=== PATIENT | female | born 1950 ===

== ENCOUNTER 2017-12-20 05:18 | Inpatient (IN) | payer OTHER ==
[~2017-12-20] VITALS: Ht 170.2 cm; Wt 50.8 kg
[2017-12-20] VITALS (8 sets, daily range): BP systolic 119–146; BP diastolic 57–73
[2017-12-20] MEDS ORDERED: ROPINIROLE HCL2 MG PO (06:48)
[2017-12-20] MEDS ORDERED: TRAZODONE HCL50 MG ORAL (06:48)
[2017-12-20] MEDS ORDERED: NATURE-THROID97.5 MG PO (06:48)
[2017-12-20] MEDS ORDERED: NORCO 10-325 T1 EACH ORAL (06:48)
[2017-12-20] MEDS ORDERED: fentaNYL 100 mcg/2 mL IV ONE ×2 (07:06→10:41)
[2017-12-20] MEDS ORDERED: Midazolam 2mg/2ml Inj ONE (07:06)
[2017-12-20] MEDS ORDERED: EPINEPHrine 1mg/1ml Amp ONE (07:07)
[2017-12-20] MEDS ORDERED: Propofol 200mg/20ml IV ONE (07:07)
[2017-12-20] MEDS ORDERED: Bacitracin 50000 Units Vial ONE (07:08)
[2017-12-20] MEDS ORDERED: Thrombin 5000 units TOPIC ONE ×2 (07:08→07:09)
[2017-12-20] MEDS ORDERED: Bupivacaine 0.5% Inj 30 ml vial INJ ONE (07:08)
[2017-12-20] MEDS ORDERED: Vancomycin 1gm inj IVPB ONE (07:08)
[2017-12-20] MEDS ORDERED: Succinylcholine 20mg/ml 10ml vial ONE (07:10)
[2017-12-20] MEDS ORDERED: Zemuron 50mg/5ml Inj IV ONE (07:10)
--- NOTE | 2017-12-20 07:19 | Pre-Procedure Note/Attestation ---
Pre-Procedure Note/Attestation Complete Prior to Procedure Procedure Narrative: Microdecompression at L45 and L5S1 with discectomy and possible laminectomy at L5S1 Indications for Procedure Pre-Operative Diagnosis: lumbar radiculopathy and HNP Attestation I attest that I discussed the nature of the procedure; its benefits; risks and complications; and alternatives (and the risks and benefits of such alternatives ), prior to the procedure, with the patient (or the patient's legal quality control representative). I attest that, if there was a reasonable possibility of needing a blood transfusion, the patient (or the patient's legal quality control representative) was given the [place] [facility] [employer] [facility] standardized written summary, pursuant to the Rayshawn Kayla Blood Safety Act ([place] Health and Safety Code # 1645, as amended). I attest that I re-evaluated the patient just prior to the surgery and that there has been no change in the patient's H&P, except as documented below: Nickolas Brennan MD Dec 20, 2017 07:19
[2017-12-20] MEDS ORDERED: LR 1000ml ONE (07:30)
[2017-12-20] MEDS ORDERED: Propofol 1,000mg/ 100ml btl IV ONE (07:30)
[2017-12-20] MEDS ORDERED: Neostigmine 1mg/ml 10ml Inj ONE (07:30)
[2017-12-20] MEDS ORDERED: NS Irrig 1000ml ONE (07:30)
[2017-12-20] MEDS ORDERED: Sterile Water Irrig 1000ml IRRIG ONE (07:30)
[2017-12-20] MEDS ORDERED: LR 1000ml 1,000 ML IVLG SCH (09:22)
--- NOTE | 2017-12-20 09:22 | Anethesia Preoperative Eval ---
Anesthesia Pre-op PMH/ROS General Date of Evaluation: Dec 20, 2017 Time of Evaluation: 07:20 Anesthesiologist: Cinthia ASA Score: ASA 3 Mallampati Score Class I : Soft palate, uvula, fauces, pillars visible Class II: Soft palate, uvula, fauces visible Class III: Soft palate, base of uvula visible Class IV: Only hard plate visible Mallampati Classification: Class II Surgeon: Mika Diagnosis: Lumbar radiculopathy Surgical Procedure: L4-L5 L5-S1 laminotomy with decompression Anesthesia History: none Social History: current smoker Family History: no anesthesia problems Allergies: Coded Allergies: No Known Allergies (Unverified , 12/20/17) Past Medical History Cardiovascular: Denies: HTN, CAD, [place], valve dz, arrhythmia, other Pulmonary: Denies: asthma, COPD, RAKEL, other Gastrointestinal/Genitourinary: Reports: GERD Neurologic/Psychiatric: Reports: depression/anxiety, other - chronic pain; Denies: dementia, CVA, TIA Endocrine: Reports: hypothyroidism; Denies: DM, steroids, other HEENT: Denies: cataract (L), cataract (R), glaucoma, KAKE (L), KAKE (R), other Hematology/Immune: Denies: anemia, DVT, bleeding disorder, other Musculoskeletal/Integumentary: Reports: DJD, other - Multiple sclerosis bilateral legs weakness; Denies: OA, RA, DDD, edema Other: other - malnourished PMH Narrative: as above PSxH Narrative: Bladder stimulator placement Anesthesia Pre-op Phys. Exam Physician Exam Last Vital Signs Date Time Temp Pulse Resp B/P (MAP) Pulse Ox O2 Delivery O2 Flow Rate FiO2 12/20/17 06:41 Room Air 12/20/17 06:24 97.5 58 18 119/57 (77) 100 97.5 Constitutional: NAD Neurologic: CN 2-12 intact Cardiovascular: RRR, no M/R/G Respiratory: CTA, other Gastrointestinal: S/NT/ND Airway Exam Mallampati Score: Class II MO: limited Neck: stiff ROM: limited Teeth: missing Dentures: upper, lower Anesthesia Pre-op A/P Labs see chart Studies Pre-op Studies: EKG - NSR Risk Assessment & Plan Assessment: ASA 3 Plan: GA with ETT prone position neuromonitoring Status Change Before Surgery: No Pre-Antibiotics Drug: Ancef 1 gr. Given Within 1 Hr of Incision: Yes Time Given: 08:50 Bud Vicente MD Dec 20, 2017 09:22
[2017-12-20] MEDS ORDERED: Ketorolac 30mg Inj IV PRN (09:30)
[2017-12-20] MEDS ORDERED: Midazolam 2mg/2ml Inj IVP PRN (09:30)
[2017-12-20] MEDS ORDERED: Acetaminophen (Non formulary) 100 ML IV ONE (09:30)
[2017-12-20] MEDS ORDERED: fentaNYL 100 mcg/2 mL IV PRN (09:30)
[2017-12-20] MEDS ORDERED: DiphenhydrAMINE 50mg/ml Inj IVP PRN (09:30)
[2017-12-20] MEDS ORDERED: Glycopyrrolate 0.2mg/ml 1ml Vial ONE (10:04)
--- NOTE | 2017-12-20 11:48 | Brief Operative Note ---
Immediate Post Operative Note Operative Note Pre-op Diagnosis: lumbar radiculopathy and HNP Procedure: L5S1 laminectomy and foraminotomies and microdiscectomy Post-op Diagnosis: same as pre-op Findings: consistent w/pre-op dx studies Surgeon: MAXINE Prison Psychiatrist: JUWAN Anesthesia: general Specimen: yes Complications: none Condition: stable Fluids: 1200CC Estimated Blood Loss: minimal - 100CC Drains: hemovac Implant(s) used?: No Nickolas Brennan MD Dec 20, 2017 11:48
--- NOTE | 2017-12-20 12:19 | Immediate Post-Op Evaluation ---
Immediate Post-Op Evalulation Immediate Post-Op Evalulation Procedure: L4-L5-S1 laminotomy with decompression Date of Evaluation: Dec 20, 2017 Time of Evaluation: 12:17 IV Fluids: 1500 Blood Products: Albumine 250 Estimated Blood Loss: 100 Urinary Output: 400 Blood Pressure Systolic: 141 Blood Pressure Diastolic: 70 Pulse Rate: 84 Respiratory Rate: 20 O2 Sat by Pulse Oximetry: 99 Temperature (Fahrenheit): 97.8 Pain Score (1-10): 1 Nausea: No Vomiting: No Complications none Patient Status: reacts, patent, extubated, none Hydration Status: adequate Bud Vicente MD Dec 20, 2017 12:19
--- NOTE | 2017-12-20 12:34 | Diagnostic Imaging Report ---
Indication: Back pain Technique: Flexion and extension images of the lumbar spine Comparison: No Findings: There is slight anterior offset of L5 on S1 and of L4 on L5.. The remaining bony alignment is normal and does not change significantly between flexion and extension. There is a burst/compression fracture deformity of the L1 vertebral body, with approximately 40% height loss anteriorly. There is degenerative narrowing of the T12-L1 disc and slightly of the L5-S1 disc. There is a sacral stimulator wire present Impression: No evidence of ligamentous instability L1 compression fracture, age indeterminate. Minimal alignment abnormality at L4-5 and L5-S1, probably due to facet arthrosis Other degenerative changes, as described Sacral stimulator wire noted
--- NOTE | 2017-12-20 12:35 | Diagnostic Imaging Report ---
Indication: Low back pain, right lower extremity greater than left lower extremity weakness, intraoperative Technique: Intraoperative imaging Comparison: none Findings: Surgical tool is seen posterior to what is presumably the top of L5. Impression: Intraoperative imaging, as described
[2017-12-20] MEDS ORDERED: Naloxone 0.4mg/ml Inj IVP PRN (14:00)
[2017-12-20] MEDS ORDERED: Norco 5mg/325mg tab ORAL PRN (14:00)
[2017-12-20] MEDS: D5 1/2NS 1,000 ML IV SCH ×2 (14:20→22:44)
[2017-12-20] MEDS: Morphine Sulfate 4mg/ml Inj IV PRN ×4 (14:27→22:11)
--- NOTE | 2017-12-20 14:37 | History and Physical ---
History of Present Illness General Date patient seen: Dec 20, 2017 Present Illness HPI 67 year old female with hx of depression and anxiety was diagnosed to have lumbar radiculopathy and HNP and underwent L5S1 laminectomy and foraminotomies and microdiscectomy. Post operatively pt is admitted to surgical floor for post- op care. Allergies: Coded Allergies: No Known Allergies (Unverified , 12/20/17) Medication History Scheduled Ropinirole Hcl* (Ropinirole Hcl*), 2 MG PO BID, (Reported) Thyroid,Pork (Nature-Throid), 97.5 MG PO DAILY, (Reported) Trazodone Hcl* (Desyrel*), 50 MG ORAL BEDTIME, (Reported) Scheduled PRN Hydrocodone Bit/Acetaminophen 10-325* ([place] 10-325*), 1 TAB ORAL Q4H PRN for For Pain, (Reported) Patient History Healthcare decision maker [address](friend) Resuscitation status Full Code Advanced Directive on File Past Medical/Surgical History Past Medical/Surgical History: (1) Lumbar radiculitis Review of Systems All Other Systems: negative except mentioned in HPI Physical Exam General Appearance: WD/WN Lines, tubes and drains: peripheral HEENT: normocephalic Neck: non-tender, normal alignment, limited range of motion Respiratory/Chest: chest wall non-tender, lungs clear Breasts: no masses Cardiovascular/Chest: normal peripheral pulses Abdomen: normal bowel sounds Genitourinary/Rectal: normal genital exam Extremities: normal range of motion Last 24 Hour Vital Signs Date Time Temp Pulse Resp B/P (MAP) Pulse Ox O2 Delivery O2 Flow Rate FiO2 12/20/17 14:27 98.0 12/20/17 13:03 98 65 24 146/68 100 Nasal Cannula 3 98.0 12/20/17 12:45 69 24 140/63 100 Nasal Cannula 3 12/20/17 12:30 70 24 125/71 100 Nasal Cannula 3 12/20/17 12:19 208.0 84 20 99 12/20/17 12:15 81 24 125/71 100 Simple Mask 8 12/20/17 12:10 60 24 130/70 100 Simple Mask 8 12/20/17 12:05 97.8 60 24 139/73 100 Simple Mask 8 97.8 12/20/17 06:41 Room Air 12/20/17 06:24 97.5 58 18 119/57 (77) 100 97.5 Intake and Output 12/19/17 12/20/17 19:00 07:00 # Voids 1 Height (Feet): 5 Height (Inches): 7.00 Weight (Pounds): 112 Medications Current Medications Medications (Trade) Dose Ordered Sig/Mylene Route PRN Reason Start Time Stop Time Status Last Admin Dose Admin Acetaminophen/ Hydrocodone Bitart ([place] 5/325) 1 tab Q3H PRN ORAL pain score 1-3 12/20/17 14:00 12/27/17 13:59 Acetaminophen/ Hydrocodone Bitart ([place] 7.5/325) 1 tab Q3H PRN ORAL pain score 4-6 12/20/17 14:00 12/27/17 13:59 Cefazolin Sodium 1 gm/Dextrose 55 ml @ 110 mls/hr Q8H IV 12/20/17 16:00 12/21/17 08:29 Dextrose/Sodium Chloride 1,000 ml @ 100 mls/hr Q10H IV 12/20/17 14:00 01/19/18 13:59 12/20/17 14:20 Docusate Sodium (Colace) 100 mg TWICE A DAY ORAL 12/20/17 18:00 01/19/18 17:59 Morphine Sulfate (Morphine Sulfate) 2 mg Q4H PRN IV Mild Pain (Pain Scale 1-3) 12/20/17 14:00 12/27/17 13:59 Morphine Sulfate (Morphine Sulfate) 4 mg Q3H PRN IV Severe Pain (Pain Scale 7-10) 12/20/17 14:00 12/27/17 13:59 12/20/17 14:27 Morphine Sulfate (Morphine Sulfate) 4 mg Q4H PRN IV Moderate Pain (Pain Scale 4-6) 12/20/17 14:00 12/27/17 13:59 Naloxone HCl (Narcan) 0.1 mg PRN PRN IVP RR<12/min, pt unarousable 12/20/17 14:00 01/19/18 13:59 Assessment/Plan Problem List: (1) Lumbar radiculopathy ICD Codes: M54.16 - Radiculopathy, lumbar region SNOMED: [id number] (2) L5S1 laminectomy Assessment/Plan post op care pain management symptomatic treatment dvt prophylaxis. Zarrabi,Mirali MD Dec 20, 2017 14:37
[2017-12-20] MEDS: ceFAZolin sod 1 GM in D5W 55 ML IV SCH ×2 (17:38→23:29)
[2017-12-20] MEDS: Docusate 100mg cap ORAL SCH (18:00)
[2017-12-20] MEDS: TraZODone 50mg tab ORAL SCH (22:06)
[2017-12-21] VITALS (7 sets, daily range): BP systolic 100–136; BP diastolic 60–78
[2017-12-21] MEDS: Morphine Sulfate 4mg/ml Inj IV PRN ×8 (00:50→20:05)
--- NOTE | 2017-12-21 05:15 | Operative Note - Dictated ---
DATE OF OPERATION: 12/20/2017 PREOPERATIVE DIAGNOSES: L4-L5 and L5-S1 disk protrusion stenosis and right lower extremity radiculopathy with progressive neurologic deficit and weakness. POSTOPERATIVE DIAGNOSES: L4-L5 and L5-S1 disk protrusion stenosis and right lower extremity radiculopathy with progressive neurologic deficit and weakness. PROCEDURE PERFORMED: 1. L5-S1 laminectomy, foraminotomy, and right-sided diskectomy. 2. Right L4-L5 laminotomy, medial facetectomy, foraminotomy, and lateral recess decompression. 3. Intraoperative use of microscope. SURGEON: Nickolas Brennan M.D. NANOTECHNICIAN: Rafi Vazquez M.D. ANESTHESIA: General endotracheal anesthesia. ANESTHESIOLOGIST: Bud Vicente M.D. INTRAOPERATIVE FINDINGS: 1. Severe central canal lateral recess and foraminal stenosis at L5-S1 with a disk protrusion on the right side with intraforaminal extension causing severe right foraminal stenosis for the exiting L5 nerve root on the right. 2. L4-L5 central canal and lateral recess stenosis on the right side with compression of the traversing L5 nerve root. ESTIMATED BLOOD LOSS: 100 mL. FLUIDS: 1200 mL. INDICATIONS: This is a pleasant female, who has failed nonoperative treatment. Options for above treatment was done. Preoperative flexion extension x-rays were done, which showed no instability. There was a rudimentary nonmobile S1-S2 disk and that was noted preoperatively. Risks, alternatives, and benefits were discussed with the patient at length. Risks include, but are not limited to anesthesia complications including , medical complications including liver, kidney, and cardiopulmonary deficits, infection, bleeding, neurovascular injury, worsening of function, pars fracture, need for future surgery, as well as other complications. The patient understood and wished to proceed. Written and verbal consent was given. OPERATION IN DETAIL: The patient was brought into the operating room supine on a stretcher. Appropriate IV lines were placed and 2 g of Ancef was administered. Anesthesia was induced. The patient was successfully intubated. Sequential compression devices were placed on to the bilateral lower extremities. A Trevizo was placed under sterile conditions. The patient was gently turned prone on the Armando frame table. All bony prominences were well padded. The abdomen was assured to lay freely. The skin of the sacrum was very thin without an ulcer. The patient was prepped and draped in the usual sterile fashion with alcohol, chlorhexidine scrub, ChloraPrep, and Ioban draping. Fluoroscopy was done to plan the incision. At this point, me and my switchboard operator assistant were prepped and gowned appropriately and the intraoperatively sterilely draped microscope was brought into the field to do the operation throughout the case. SSEP monitoring and EMG leads were placed and remained stable throughout the case. There was no EMG activity. At this point, a scalpel was used to incise the skin with monopolar cautery. Subperiosteal dissection of the lamina at L5 and S1 was done and the right L4-L5 lamina was also dissected out. The lateral joint facet capsules were well preserved and at this point, attention was first diverted to the laminectomy with the Le[place]ell rongeur, high-speed drill, #2 to #5 Kerrison punches, curved curette, dental probe, and [place] probe, the laminectomy was accomplished at L5-S1. There was severe stenosis centrally, lateral recess, and foramina. Extensive foraminal decompression for the exiting right L5 nerve root was done and excellent decompression was accomplished for both lateral recesses both foramina as well as the central canal. At this point, hemostasis was achieved with Gelfoam, thrombin, cautery, and a nerve root retractor was used to gently retract the nerve root medially on the right side and a disk protrusion was found at L5-S1. This was a protrusion and not a bulge. At this point, a #11 scalpel was used to incise the posterior annulus and with pituitary rongeur and Jefferson curette, a diskectomy was accomplished. Foraminal diskectomy was also done to decompress the exiting right L5 nerve root and at this point, Valsalva was done and there was no CSF leak. Now, attention was diverted to the right side at L4-L5 and with the same instruments a high-speed drill, straight and curved curettes, #2 to #5 Kerrison punches, an interlumbar laminotomy, medial facetectomy, and foraminotomy was done. A complete lateral recess decompression was done. Drilling of the lamina was done medially and underneath the spinous process to obtain a central decompression as well and a foraminotomy to the right L5 nerve and the right L4 nerve root was also accomplished. Valsalva was done at 30 and 40 mmHg. There was no CSF leak. The floor of the canal was checked. There was a small disk bulge, which was not impinging and therefore, a diskectomy was not done. Valsalva was done. There was no CSF leak. The wound was copiously irrigated with triple antibiotic solution. Hemostasis was achieved with Gelfoam, thrombin, FloSeal, and bipolar cautery. The wound was copiously irrigated with triple antibiotic solution and now attention was diverted to closure. A Hemovac drain was placed subfascially. A 1 g of vancomycin powder was placed suprafascially and subfascially. The dorsal lumbar fascia was closed with #1 Vicryl suture and the subdural and subcuticular layers were closed with 2-0 Vicryl sutures. The skin was closed with Dermabond. Sterile dressing tape was placed. The patient was gently turned supine, was extubated in stable condition, and was found to be neurovascularly intact. She was admitted to the hospital for monitoring. Nickolas Brennan M.D. DR: Charly JOB#: [id number] CC: ESTHER
--- NOTE | 2017-12-21 05:15 | Operative Note - Dictated ---
DATE OF OPERATION: 12/20/2017 ADDENDUM Please note that the intraoperative microscope was used for microdissection of the neural elements during diskectomy at the L5-S1 level as well as microdissection of the traversing L5 nerve root at the L4-L5 level. Nickolas Brennan M.D. DR: ASHLEIGH JOB#: [id number] CC:
[2017-12-21] MEDS: D5 1/2NS 1,000 ML IV SCH ×2 (05:48→14:15)
[2017-12-21 06:39] LABS: BASOPHILS % (AUTO) 0.9 % (0.0-2.0); EOSINOPHILS % (AUTO) 1.4 % (0.0-3.0); HEMATOCRIT 38.8 % (37.0-47.0); HEMOGLOBIN 13.3 G/DL (12.0-16.0); LYMPHOCYTES % (AUTO) 15.6 % (20.0-45.0); MEAN CORPUSCULAR VOLUME 93 FL (80-99); MONOCYTES % (AUTO) 6.9 % (1.0-10.0); NEUTROPHILS % (AUTO) 75.2 % (45.0-75.0); PLATELET COUNT 220 K/UL (150-450); RED BLOOD COUNT 4.19 M/UL (4.20-5.40); RED CELL DISTRIBUTION WIDTH 11.6 % (11.6-14.8); WHITE BLOOD COUNT 11.5 K/UL (4.8-10.8)
[2017-12-21] MEDS ORDERED: LORazepam 0.5mg tab ORAL PRN (08:15)
[2017-12-21] MEDS ORDERED: Morphine Sulfate 2mg/ml Inj IVP SCH (08:15)
[2017-12-21] MEDS: LORazepam 1mg tab ORAL PRN (08:33)
[2017-12-21] MEDS: Docusate 100mg cap ORAL SCH ×2 (08:34→18:15)
[2017-12-21] MEDS: ceFAZolin sod 1 GM in D5W 55 ML IV SCH (09:06)
--- NOTE | 2017-12-21 09:50 | 48 Hour Post Anesthesia Eval ---
Post Anesthesia Evaluation Procedure: L4-L5-S1 laminotomy with decompression Date of Evaluation: Dec 21, 2017 Time of Evaluation: 11:30 Blood Pressure Systolic: 134 0: 70 Pulse Rate: 85 Respiratory Rate: 18 Temperature (Fahrenheit): 98.0 O2 Sat by Pulse Oximetry: 100 Airway: patent Nausea: No Vomiting: No If pain is > 6 Comment: 4 Hydration Status: adequate Cardiopulmonary Status: Stable Mental Status/LOC: patient returned to baseline Follow-up Care/Observations: As per surgery Post-Anesthesia Complications: No anesthetic complication Follow-up care needed: N/A Rayshawn Orlando MD Dec 21, 2017 09:50
--- NOTE | 2017-12-21 10:10 | Pulmonology Progress Note ---
Assessment/Plan Problems: (1) Lumbar radiculopathy (2) L5S1 laminectomy Assessment/Plan no new complains pain management symptomatic treatment dc planning Subjective ROS Limited/Unobtainable: No Constitutional: Reports: no symptoms HEENT: Repors: no symptoms Respiratory: Reports: no symptoms Allergies: Coded Allergies: No Known Allergies (Unverified , 12/20/17) Objective Last 24 Hour Vital Signs Date Time Temp Pulse Resp B/P (MAP) Pulse Ox O2 Delivery O2 Flow Rate FiO2 12/21/17 10:05 85 18 127/65 (85) 94 12/21/17 10:04 98.0 12/21/17 09:50 208.4 85 18 100 12/21/17 08:33 98.0 12/21/17 08:00 98.0 85 18 134/70 (91) 100 98.0 12/21/17 04:00 99.1 84 19 136/78 (97) 100 99.1 12/21/17 00:00 99.3 72 17 129/68 (88) 95 99.3 12/20/17 20:00 99.1 74 19 123/68 (86) 97 99.1 12/20/17 20:00 99.1 74 19 123/68 (86) 96 99.1 12/20/17 20:00 Room Air Room Air 12/20/17 18:00 98.0 12/20/17 17:38 98.0 12/20/17 14:27 98.0 12/20/17 13:03 98 65 24 146/68 100 Nasal Cannula 3 98.0 12/20/17 12:45 69 24 140/63 100 Nasal Cannula 3 12/20/17 12:30 70 24 125/71 100 Nasal Cannula 3 12/20/17 12:19 208.0 84 20 99 12/20/17 12:15 81 24 125/71 100 Simple Mask 8 12/20/17 12:10 60 24 130/70 100 Simple Mask 8 12/20/17 12:05 97.8 60 24 139/73 100 Simple Mask 8 97.8 Intake and Output 12/20/17 12/21/17 18:59 06:59 Intake Total 2450 ml 1655.00 ml Output Total 500 ml 1860 ml Balance 1950 ml -205.00 ml Intake Oral 400 ml IV Total 2200 ml 1255.00 ml Other 250 ml Output Urine Total 400 ml 1800 ml Drainage Total 60 ml Estimated Blood Loss 100 ml General Appearance: WD/WN HEENT: normocephalic Respiratory/Chest: chest wall non-tender, lungs clear Breasts: no masses Cardiovascular: normal peripheral pulses, regular rhythm Abdomen: normal bowel sounds, soft, non tender Genitourinary: normal external genitalia Extremities: no clubbing Skin: no rash Laboratory Tests 12/21/17 05:00: White Blood Count 11.5H, Red Blood Count 4.19L, Hemoglobin 13.3, Hematocrit 38.8 , Mean Corpuscular Volume 93, Mean Corpuscular Hemoglobin 31.8H, Mean Corpuscular Hemoglobin Concent 34.4, Red Cell Distribution Width 11.6, Platelet Count 220, Mean Platelet Volume 7.1, Neutrophils (%) (Auto) 75.2H, Lymphocytes ( %) (Auto) 15.6L, Monocytes (%) (Auto) 6.9, Eosinophils (%) (Auto) 1.4, Basophils (%) (Auto) 0.9 Current Medications Medications (Trade) Dose Ordered Sig/Mylene Route PRN Reason Start Time Stop Time Status Last Admin Dose Admin Acetaminophen/ Hydrocodone Bitart ([place] 5/325) 1 tab Q3H PRN ORAL pain score 1-3 12/20/17 14:00 12/27/17 13:59 Acetaminophen/ Hydrocodone Bitart ([place] 7.5/325) 1 tab Q3H PRN ORAL pain score 4-6 12/20/17 14:00 12/27/17 13:59 Dextrose/Sodium Chloride 1,000 ml @ 100 mls/hr Q10H IV 12/20/17 14:00 01/19/18 13:59 12/21/17 05:48 Docusate Sodium (Colace) 100 mg TWICE A DAY ORAL 12/20/17 18:00 01/19/18 17:59 Lorazepam (Ativan) 1 mg TIDPRN PRN ORAL For Anxiety 12/21/17 08:30 12/28/17 08:14 12/21/17 08:33 Morphine Sulfate (Morphine Sulfate) 2 mg Q4H PRN IV Mild Pain (Pain Scale 1-3) 12/20/17 14:00 12/27/17 13:59 Morphine Sulfate (Morphine Sulfate) 4 mg Q3H PRN IV Severe Pain (Pain Scale 7-10) 12/20/17 14:00 12/27/17 13:59 12/21/17 10:04 Morphine Sulfate (Morphine Sulfate) 4 mg Q4H PRN IV Moderate Pain (Pain Scale 4-6) 12/20/17 14:00 12/27/17 13:59 12/21/17 05:43 Naloxone HCl (Narcan) 0.1 mg PRN PRN IVP RR<12/min, pt unarousable 12/20/17 14:00 01/19/18 13:59 Trazodone HCl (Desyrel) 50 mg BEDTIME ORAL 12/20/17 21:00 01/19/18 20:59 12/20/17 22:06 Alexia Cooley MD Dec 21, 2017 10:10
[2017-12-21] MEDS: HYDROcodone/Acetamin 7.5/325 tab ORAL PRN ×2 (14:12→18:15)
[2017-12-21] MEDS: TraZODone 50mg tab ORAL SCH (20:03)
--- NOTE | 2017-12-21 21:57 | General Progress Note ---
Progress Note Progress Note Doing well lbp no leg pain pain well controlled motor left leg 5/5 right leg weak ehl and pl 4/5 slightly improved compared to preop sensation intact calves soft and nt dressing changed hv out a: doing well h and h stable P: aggressive pt oob mobilize dc planning will need home health aid Nickolas Brennan MD Dec 21, 2017 21:57
[2017-12-22 00:10] VITALS: BP 108/62
[2017-12-22] MEDS: D5 1/2NS 1,000 ML IV SCH ×2 (00:11→14:43)
[2017-12-22] MEDS: Morphine Sulfate 4mg/ml Inj IV PRN ×3 (00:11→08:21)
[2017-12-22 04:00] VITALS: BP 102/61
[2017-12-22] MEDS: HYDROcodone/Acetamin 7.5/325 tab ORAL PRN (06:48)
[2017-12-22 07:48] LABS: BASOPHILS % (AUTO) 0.8 % (0.0-2.0); EOSINOPHILS % (AUTO) 0.3 % (0.0-3.0); HEMATOCRIT 38.6 % (37.0-47.0); HEMOGLOBIN 13.4 G/DL (12.0-16.0); LYMPHOCYTES % (AUTO) 6.6 % (20.0-45.0); MEAN CORPUSCULAR VOLUME 92 FL (80-99); MONOCYTES % (AUTO) 8.8 % (1.0-10.0); NEUTROPHILS % (AUTO) 83.5 % (45.0-75.0); PLATELET COUNT 237 K/UL (150-450); RED CELL DISTRIBUTION WIDTH 11.3 % (11.6-14.8); WHITE BLOOD COUNT 15.7 K/UL (4.8-10.8)
[2017-12-22 08:00] VITALS: BP 105/62
[2017-12-22] MEDS: Docusate 100mg cap ORAL SCH ×3 (08:17→09:00)
[2017-12-22 12:00] VITALS: BP 103/68
[2017-12-22] MEDS: oxyCODONE HCL/Acetaminophen 5/325mg ORAL PRN ×3 (14:27→21:46)
[2017-12-22 15:04] VITALS: BP 111/57
--- NOTE | 2017-12-22 15:06 | Pulmonology Progress Note ---
Assessment/Plan Problems: (1) Lumbar radiculopathy (2) L5S1 laminectomy Assessment/Plan no new complains pain management symptomatic treatment pt claims she needs help when going home Subjective ROS Limited/Unobtainable: No Constitutional: Reports: no symptoms HEENT: Repors: no symptoms Respiratory: Reports: no symptoms Allergies: Coded Allergies: No Known Allergies (Unverified , 12/20/17) Objective Last 24 Hour Vital Signs Date Time Temp Pulse Resp B/P (MAP) Pulse Ox O2 Delivery O2 Flow Rate FiO2 12/22/17 14:27 98.4 12/22/17 12:00 98.6 82 19 103/68 (80) 96 98.6 12/22/17 09:00 Room Air Room Air 12/22/17 08:51 98.0 12/22/17 08:21 98.0 12/22/17 08:00 98.0 96 18 105/62 (76) 96 98.0 12/22/17 07:47 98.0 12/22/17 04:00 98.0 103 20 102/61 (75) 95 98.0 12/22/17 00:10 98.1 102 19 108/62 (77) 97 98.1 12/21/17 21:00 Room Air Room Air 12/21/17 20:21 97.7 110 20 100/60 (73) 94 97.7 12/21/17 18:15 98.0 12/21/17 16:53 Room Air Room Air 12/21/17 16:42 98.0 12/21/17 16:00 97.7 100 20 136/69 (91) 94 97.7 Intake and Output 12/21/17 12/22/17 19:00 07:00 Intake Total 1340 ml 1460 ml Output Total 1600 ml 10 ml Balance -260 ml 1450 ml Intake Oral 240 ml 360 ml IV Total 1100 ml 1100 ml Output Urine Total 1600 ml Drainage Total 10 ml # Voids 2 General Appearance: WD/WN HEENT: normocephalic, anicteric Respiratory/Chest: chest wall non-tender, lungs clear, chest wall tender Cardiovascular: normal peripheral pulses Abdomen: soft, non tender, non distended Genitourinary: normal external genitalia Extremities: no clubbing Skin: no rash Microbiology Date/Time Source Procedure Growth Status 12/20/17 06:00 Nasal Nares MRSA Culture - Final NO METHICILLIN RESISTANT STAPH AUREUS... Complete Laboratory Tests 12/22/17 06:15: White Blood Count 15.7H, Red Blood Count 4.20, Hemoglobin 13.4, Hematocrit 38.6 , Mean Corpuscular Volume 92, Mean Corpuscular Hemoglobin 32.0H, Mean Corpuscular Hemoglobin Concent 34.8, Red Cell Distribution Width 11.3L, Platelet Count 237, Mean Platelet Volume 7.1, Neutrophils (%) (Auto) 83.5H, Lymphocytes (%) (Auto) 6.6L, Monocytes (%) (Auto) 8.8, Eosinophils (%) (Auto) 0.3, Basophils (%) (Auto) 0.8 Current Medications Medications (Trade) Dose Ordered Sig/Mylene Route PRN Reason Start Time Stop Time Status Last Admin Dose Admin Dextrose/Sodium Chloride 1,000 ml @ 100 mls/hr Q10H IV 12/20/17 14:00 01/19/18 13:59 12/22/17 14:43 Docusate Sodium (Colace) 100 mg TWICE A DAY ORAL 12/20/17 18:00 01/19/18 17:59 12/21/17 18:15 Lorazepam (Ativan) 1 mg TIDPRN PRN ORAL For Anxiety 12/21/17 08:30 12/28/17 08:14 12/21/17 08:33 Morphine Sulfate (Morphine Sulfate) 2 mg Q4H PRN IV Mild Pain (Pain Scale 1-3) 12/20/17 14:00 12/27/17 13:59 Morphine Sulfate (Morphine Sulfate) 4 mg Q3H PRN IV Severe Pain (Pain Scale 7-10) 12/20/17 14:00 12/27/17 13:59 12/22/17 08:21 Morphine Sulfate (Morphine Sulfate) 4 mg Q4H PRN IV Moderate Pain (Pain Scale 4-6) 12/20/17 14:00 12/27/17 13:59 12/21/17 20:05 Naloxone HCl (Narcan) 0.1 mg PRN PRN IVP RR<12/min, pt unarousable 12/20/17 14:00 01/19/18 13:59 Oxycodone/ Acetaminophen (Percocet 5-325) 1 tab Q4H PRN ORAL Severe Pain (Pain Scale 7-10) 12/22/17 14:30 12/29/17 14:29 12/22/17 14:27 Trazodone HCl (Desyrel) 50 mg BEDTIME ORAL 12/20/17 21:00 01/19/18 20:59 12/21/17 20:03 Alexia Cooley MD Dec 22, 2017 15:05
[2017-12-22 20:00] VITALS: BP 105/60
[2017-12-22] MEDS: TraZODone 50mg tab ORAL SCH (21:45)
[2017-12-23] VITALS: BP 103/62
[2017-12-23] MEDS: oxyCODONE HCL/Acetaminophen 5/325mg ORAL PRN ×6 (01:01→22:14)
[2017-12-23] MEDS: D5 1/2NS 1,000 ML IV SCH ×3 (01:02→22:00)
[2017-12-23 04:00] VITALS: BP 111/59
[2017-12-23 08:00] VITALS: BP 116/61
[2017-12-23] MEDS: Docusate 100mg cap ORAL SCH ×2 (08:56→18:03)
--- NOTE | 2017-12-23 09:37 | General Progress Note ---
Progress Note Progress Note Pt doing well no leg pain cont to have lbp on percocet walked with PT yesterday avss a and o times 3 inc cdi dressing changed motor examination in right leg not changed eating well doing well--needs aggressive rehab and perhaps placement at rehab facility cont PT 2 times a day labs stable medicine follow up pain management Nickolas Brennan MD Dec 23, 2017 09:37
--- NOTE | 2017-12-23 10:44 | Pulmonology Progress Note ---
Assessment/Plan Problems: (1) Lumbar radiculopathy (2) L5S1 laminectomy Assessment/Plan no new complains pain management symptomatic treatment pt claims she needs help when going home might need placement Subjective ROS Limited/Unobtainable: No Constitutional: Reports: no symptoms HEENT: Repors: no symptoms Respiratory: Reports: no symptoms Allergies: Coded Allergies: No Known Allergies (Unverified , 12/20/17) Objective Last 24 Hour Vital Signs Date Time Temp Pulse Resp B/P (MAP) Pulse Ox O2 Delivery O2 Flow Rate FiO2 12/23/17 08:12 98.1 12/23/17 08:00 98.2 81 18 116/61 (79) 94 98.2 12/23/17 04:00 98.1 89 18 111/59 (76) 95 98.1 12/23/17 00:00 98.2 97 18 103/62 (76) 95 98.2 12/22/17 21:00 Room Air Room Air 12/22/17 20:00 98.4 96 18 105/60 (75) 96 98.4 12/22/17 19:32 98.4 12/22/17 18:33 98.4 12/22/17 15:04 98.4 96 21 111/57 (75) 98 98.4 12/22/17 14:27 98.4 12/22/17 12:00 98.6 82 19 103/68 (80) 96 98.6 Intake and Output 12/22/17 12/23/17 19:00 07:00 Intake Total 1050 ml 1480 ml Balance 1050 ml 1480 ml Intake Oral 350 ml 480 ml IV Total 700 ml 1000 ml # Voids 1 4 General Appearance: WD/WN HEENT: normocephalic, anicteric Respiratory/Chest: chest wall non-tender, lungs clear Breasts: no masses Cardiovascular: normal peripheral pulses Abdomen: normal bowel sounds, no organomegaly Genitourinary: normal external genitalia Extremities: no cyanosis Current Medications Medications (Trade) Dose Ordered Sig/Mylene Route PRN Reason Start Time Stop Time Status Last Admin Dose Admin Dextrose/Sodium Chloride 1,000 ml @ 100 mls/hr Q10H IV 12/20/17 14:00 01/19/18 13:59 12/23/17 01:02 Docusate Sodium (Colace) 100 mg TWICE A DAY ORAL 12/20/17 18:00 01/19/18 17:59 12/23/17 08:56 Lorazepam (Ativan) 1 mg TIDPRN PRN ORAL For Anxiety 12/21/17 08:30 12/28/17 08:14 12/21/17 08:33 Morphine Sulfate (Morphine Sulfate) 2 mg Q4H PRN IV Mild Pain (Pain Scale 1-3) 12/20/17 14:00 12/27/17 13:59 Morphine Sulfate (Morphine Sulfate) 4 mg Q3H PRN IV Severe Pain (Pain Scale 7-10) 12/20/17 14:00 12/27/17 13:59 12/22/17 08:21 Morphine Sulfate (Morphine Sulfate) 4 mg Q4H PRN IV Moderate Pain (Pain Scale 4-6) 12/20/17 14:00 12/27/17 13:59 12/21/17 20:05 Naloxone HCl (Narcan) 0.1 mg PRN PRN IVP RR<12/min, pt unarousable 12/20/17 14:00 01/19/18 13:59 Oxycodone/ Acetaminophen (Percocet 5-325) 1 tab Q3H PRN ORAL Severe Pain (Pain Scale 7-10) 12/22/17 21:00 12/29/17 20:59 12/23/17 07:13 Trazodone HCl (Desyrel) 50 mg BEDTIME ORAL 12/20/17 21:00 01/19/18 20:59 12/22/17 21:45 Alexia Cooley MD Dec 23, 2017 10:44
[2017-12-23 12:00] VITALS: BP 119/61
[2017-12-23] MEDS: Morphine Sulfate 4mg/ml Inj IV PRN (12:29)
--- NOTE | 2017-12-23 12:33 | Consultation ---
History of Present Illness General Date patient seen: Dec 23, 2017 Present Illness HPI 67 year old female with hx of depression and anxiety was diagnosed to have lumbar radiculopathy and HNP. the pt is very unkept disheveled and anxious. the pt pw waxing and waning of consciousness and was somewhat confused. she knew the date however was unable to answer the questions appropriately and she was anxious Allergies: Coded Allergies: No Known Allergies (Unverified , 12/20/17) Medication History Scheduled Ropinirole Hcl* (Ropinirole Hcl*), 2 MG PO BID, (Reported) Thyroid,Pork (Nature-Throid), 97.5 MG PO DAILY, (Reported) Trazodone Hcl* (Desyrel*), 50 MG ORAL BEDTIME, (Reported) Scheduled PRN Hydrocodone Bit/Acetaminophen 10-325* ([place] 10-325*), 1 TAB ORAL Q4H PRN for For Pain, (Reported) Patient History Limited by: medical condition History Provided By: Patient, Medical Record, PMD Healthcare decision maker [address](friend) Resuscitation status Full Code Advanced Directive on File Past Medical/Surgical History Past Medical/Surgical History: (1) Lumbar radiculitis (2) Lumbar radiculopathy (3) L5S1 laminectomy Review of Systems Psychiatric: Reports: prior hx, anxiety, depressed feelings, emotional problems Physical Exam General Appearance: no apparent distress, alert Neurologic: oriented x 3, responsive, depressed affect Last 24 Hour Vital Signs Date Time Temp Pulse Resp B/P (MAP) Pulse Ox O2 Delivery O2 Flow Rate FiO2 12/23/17 12:29 98.1 12/23/17 08:12 98.1 12/23/17 08:00 98.2 81 18 116/61 (79) 94 98.2 12/23/17 08:00 Room Air Room Air 12/23/17 04:00 98.1 89 18 111/59 (76) 95 98.1 12/23/17 00:00 98.2 97 18 103/62 (76) 95 98.2 12/22/17 21:00 Room Air Room Air 12/22/17 20:00 98.4 96 18 105/60 (75) 96 98.4 12/22/17 19:32 98.4 12/22/17 18:33 98.4 12/22/17 15:04 98.4 96 21 111/57 (75) 98 98.4 12/22/17 14:27 98.4 Intake and Output 12/22/17 12/23/17 19:00 07:00 Intake Total 1050 ml 1480 ml Balance 1050 ml 1480 ml Intake Oral 350 ml 480 ml IV Total 700 ml 1000 ml # Voids 1 4 Height (Feet): 5 Height (Inches): 7.00 Weight (Pounds): 112 Medications Current Medications Medications (Trade) Dose Ordered Sig/Mylene Route PRN Reason Start Time Stop Time Status Last Admin Dose Admin Dextrose/Sodium Chloride 1,000 ml @ 100 mls/hr Q10H IV 12/20/17 14:00 01/19/18 13:59 12/23/17 12:28 Docusate Sodium (Colace) 100 mg TWICE A DAY ORAL 12/20/17 18:00 01/19/18 17:59 12/23/17 08:56 Lorazepam (Ativan) 1 mg TIDPRN PRN ORAL For Anxiety 12/21/17 08:30 12/28/17 08:14 12/21/17 08:33 Morphine Sulfate (Morphine Sulfate) 2 mg Q4H PRN IV Mild Pain (Pain Scale 1-3) 12/20/17 14:00 12/27/17 13:59 Morphine Sulfate (Morphine Sulfate) 4 mg Q3H PRN IV Severe Pain (Pain Scale 7-10) 12/20/17 14:00 12/27/17 13:59 12/23/17 12:29 Morphine Sulfate (Morphine Sulfate) 4 mg Q4H PRN IV Moderate Pain (Pain Scale 4-6) 12/20/17 14:00 12/27/17 13:59 12/21/17 20:05 Naloxone HCl (Narcan) 0.1 mg PRN PRN IVP RR<12/min, pt unarousable 12/20/17 14:00 01/19/18 13:59 Oxycodone/ Acetaminophen (Percocet 5-325) 1 tab Q3H PRN ORAL Severe Pain (Pain Scale 7-10) 12/22/17 21:00 12/29/17 20:59 12/23/17 07:13 Trazodone HCl (Desyrel) 50 mg BEDTIME ORAL 12/20/17 21:00 01/19/18 20:59 12/22/17 21:45 Assessment/Plan Assessment/Plan MDD Anxiety ?substance abuse? -naom -Loco Gonzalez MD Dec 23, 2017 12:33
[2017-12-23 16:00] VITALS: BP 137/79
[2017-12-23] MEDS: LORazepam 1mg tab ORAL PRN (18:03)
[2017-12-23 20:00] VITALS: BP 127/61
[2017-12-23] MEDS: TraZODone 50mg tab ORAL SCH (22:13)
[2017-12-24] MEDS: oxyCODONE HCL/Acetaminophen 5/325mg ORAL PRN ×3 (02:35→09:33)
[2017-12-24 04:00] VITALS: BP 138/85
[2017-12-24 08:00] VITALS: BP 112/70
[2017-12-24] MEDS: D5 1/2NS 1,000 ML IV SCH ×2 (09:30→17:34)
[2017-12-24] MEDS: Docusate 100mg cap ORAL SCH ×2 (09:32→17:34)
[2017-12-24] MEDS: Morphine Sulfate 2mg/ml Inj IV PRN ×2 (11:52→15:59)
--- NOTE | 2017-12-24 11:55 | Pulmonology Progress Note ---
Assessment/Plan Problems: (1) Lumbar radiculopathy (2) L5S1 laminectomy Assessment/Plan pt is max assist according to PT note, but she wants to go home no new complains pain management symptomatic treatment pt claims she needs help when going home might need placement, but she doesn't want to go to any rehab Subjective ROS Limited/Unobtainable: No Constitutional: Reports: no symptoms HEENT: Repors: no symptoms Respiratory: Reports: no symptoms Cardiovascular: Reports: no symptoms Allergies: Coded Allergies: No Known Allergies (Unverified , 12/20/17) Objective Last 24 Hour Vital Signs Date Time Temp Pulse Resp B/P (MAP) Pulse Ox O2 Delivery O2 Flow Rate FiO2 12/24/17 09:00 Room Air Room Air 12/24/17 08:00 98.5 96 20 112/70 (84) 94 98.5 12/24/17 04:00 97.8 82 19 138/85 (102) 97 97.8 12/23/17 21:00 Room Air Room Air 12/23/17 20:00 97.5 91 16 127/61 (83) 95 97.5 12/23/17 19:09 98.1 12/23/17 17:19 98.1 12/23/17 16:15 98.1 12/23/17 16:00 97.9 102 18 137/79 (98) 98 97.9 12/23/17 12:59 98.1 12/23/17 12:29 98.1 12/23/17 12:00 98.1 73 18 119/61 (80) 98 98.1 Intake and Output 12/23/17 12/24/17 19:00 07:00 Intake Total 700 ml 1100 ml Balance 700 ml 1100 ml Intake Oral 500 ml 500 ml IV Total 200 ml 600 ml # Voids 3 3 General Appearance: WD/WN HEENT: normocephalic, atraumatic Respiratory/Chest: chest wall non-tender, lungs clear, normal breath sounds Breasts: no masses Cardiovascular: normal rate Abdomen: normal bowel sounds, soft, non tender Genitourinary: normal external genitalia Skin: no ulcers Current Medications Medications (Trade) Dose Ordered Sig/Mylene Route PRN Reason Start Time Stop Time Status Last Admin Dose Admin Dextrose/Sodium Chloride 1,000 ml @ 100 mls/hr Q10H IV 12/20/17 14:00 01/19/18 13:59 12/24/17 09:30 Docusate Sodium (Colace) 100 mg TWICE A DAY ORAL 12/20/17 18:00 01/19/18 17:59 12/24/17 09:32 Fluoxetine HCl (PROzac) 20 mg DAILY ORAL 12/24/17 09:00 01/23/18 08:59 12/24/17 09:32 Lorazepam (Ativan) 1 mg TIDPRN PRN ORAL For Anxiety 12/21/17 08:30 12/28/17 08:14 12/23/17 18:03 Morphine Sulfate (Morphine Sulfate) 2 mg Q4H PRN IV Mild Pain (Pain Scale 1-3) 12/20/17 14:00 12/27/17 13:59 12/24/17 11:52 Morphine Sulfate (Morphine Sulfate) 4 mg Q3H PRN IV Severe Pain (Pain Scale 7-10) 12/20/17 14:00 12/27/17 13:59 12/23/17 12:29 Morphine Sulfate (Morphine Sulfate) 4 mg Q4H PRN IV Moderate Pain (Pain Scale 4-6) 12/20/17 14:00 12/27/17 13:59 12/21/17 20:05 Naloxone HCl (Narcan) 0.1 mg PRN PRN IVP RR<12/min, pt unarousable 12/20/17 14:00 01/19/18 13:59 Oxycodone/ Acetaminophen (Percocet 5-325) 1 tab Q3H PRN ORAL Severe Pain (Pain Scale 7-10) 12/22/17 21:00 12/29/17 20:59 12/24/17 09:33 Trazodone HCl (Desyrel) 50 mg BEDTIME ORAL 12/20/17 21:00 01/19/18 20:59 12/23/17 22:13 Alexia Cooley MD Dec 24, 2017 11:55
[2017-12-24 12:00] VITALS: BP 116/73
[2017-12-24 16:00] VITALS: BP 163/100
[2017-12-24] MEDS ORDERED: D5 1/2NS 1000ml IV ONE ×2 (16:23→16:52)
[2017-12-24 16:40] VITALS: BP 144/81
[2017-12-24] MEDS ORDERED: NS 500ML ONE (16:52)
[2017-12-24 20:00] VITALS: BP 143/91
[2017-12-24] MEDS: TraZODone 50mg tab ORAL SCH (20:33)
[2017-12-24] MEDS: Morphine Sulfate 4mg/ml Inj IV PRN (20:34)
--- NOTE | 2017-12-24 20:47 | General Progress Note ---
Progress Note Progress Note lbp with no leg pain iv removed site is clean with no sign of infection ambulating with pt a and o times 3 inc cdi dressing in place 5/5 motor in the le calves soft and nt lt intact a: doing well p: will need placement pain management scds oob spine precations. Nickolas Brennan MD Dec 24, 2017 20:47
[2017-12-24] MEDS ORDERED: Morphine Sulfate 2mg/ml Inj IM SCH (21:00)
[2017-12-25] VITALS: BP 154/96
[2017-12-25] MEDS: oxyCODONE HCL/Acetaminophen 5/325mg ORAL PRN ×5 (01:06→20:38)
[2017-12-25 04:00] VITALS: BP 165/89
[2017-12-25] MEDS: D5 1/2NS 1,000 ML IV SCH ×2 (04:00→14:00)
[2017-12-25 08:00] VITALS: BP 144/84
[2017-12-25] MEDS: Docusate 100mg cap ORAL SCH ×2 (08:28→18:00)
[2017-12-25 12:00] VITALS: BP 141/83
[2017-12-25 12:56] LABS: HEMATOCRIT 40.5 % (37.0-47.0); HEMOGLOBIN 13.6 G/DL (12.0-16.0); MEAN CORPUSCULAR VOLUME 92 FL (80-99); PLATELET COUNT 406 K/UL (150-450); RED BLOOD COUNT 4.39 M/UL (4.20-5.40); RED CELL DISTRIBUTION WIDTH 11.3 % (11.6-14.8); WHITE BLOOD COUNT 17.5 K/UL (4.8-10.8)
[2017-12-25 13:03] LABS: ANION GAP 10 mmol/L (5-15); BLOOD UREA NITROGEN 19 mg/dL (7-18); CALCIUM 9.6 MG/DL (8.5-10.1); CARBON DIOXIDE 27 MMOL/L (21-32); CHLORIDE 102 MMOL/L (98-107); CREATININE 0.7 MG/DL (0.55-1.30); POTASSIUM 3.7 MMOL/L (3.5-5.1); SODIUM 139 MMOL/L (136-145)
[2017-12-25 13:05] LABS: APPEARANCE,URINE CLOUDY; BILIRUBIN, URINE NEGATIVE (NEGATIVE); COLOR,URINE PALE YELLOW; GLUCOSE, URINE (UA) NEGATIVE (NEGATIVE); KETONES,URINE NEGATIVE (NEGATIVE); LEUKOCYTE ESTERASE ,URINE 3+ (NEGATIVE); NITRITE,URINE NEGATIVE (NEGATIVE); PH,URINE 7 (4.5-8.0); PROTEIN,URINE 2+ (NEGATIVE); UROBILINOGEN,URINE NORMAL MG/DL (0.0-1.0)
[2017-12-25 16:00] VITALS: BP 122/75
--- NOTE | 2017-12-25 18:21 | Pulmonology Progress Note ---
Assessment/Plan Problems: (1) Lumbar radiculopathy (2) L5S1 laminectomy Assessment/Plan pt is max assist according to PT note, but she wants to go home no new complains pain management symptomatic treatment pt claims she needs help when going home no new events Subjective ROS Limited/Unobtainable: No Constitutional: Reports: no symptoms HEENT: Repors: no symptoms Cardiovascular: Reports: no symptoms Gastrointestinal/Abdominal: Reports: no symptoms Allergies: Coded Allergies: No Known Allergies (Unverified , 12/20/17) Objective Last 24 Hour Vital Signs Date Time Temp Pulse Resp B/P (MAP) Pulse Ox O2 Delivery O2 Flow Rate FiO2 12/25/17 16:55 98.3 12/25/17 16:00 97.8 82 20 122/75 (91) 96 97.8 12/25/17 15:57 98.3 12/25/17 12:00 98.3 88 18 141/83 (102) 98 98.3 12/25/17 09:00 Room Air Room Air 12/25/17 08:29 98.6 12/25/17 08:00 98.1 96 22 144/84 (104) 98 98.1 12/25/17 04:00 98.6 89 18 165/89 (114) 96 98.6 12/25/17 00:00 99.1 102 18 154/96 (115) 95 99.1 12/24/17 21:31 98.6 12/24/17 21:00 Room Air Room Air 12/24/17 20:00 99.3 108 19 143/91 (108) 96 99.3 Intake and Output 12/24/17 12/25/17 19:00 07:00 Intake Total 520 ml 240 ml Balance 520 ml 240 ml Intake Oral 520 ml 240 ml # Voids 4 4 General Appearance: no acute distress, cachetic HEENT: normocephalic, atraumatic Respiratory/Chest: chest wall non-tender, lungs clear Breasts: no masses Cardiovascular: normal peripheral pulses Abdomen: normal bowel sounds, soft, non tender Genitourinary: normal external genitalia Extremities: no clubbing 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 Laboratory Tests 12/25/17 12:31: White Blood Count 17.5H, Red Blood Count 4.39, Hemoglobin 13.6, Hematocrit 40.5 , Mean Corpuscular Volume 92, Mean Corpuscular Hemoglobin 31.0, Mean Corpuscular Hemoglobin Concent 33.6, Red Cell Distribution Width 11.3L, Platelet Count 406, Mean Platelet Volume 6.8, Neutrophils (%) (Auto) , Lymphocytes (%) (Auto) , Monocytes (%) (Auto) , Eosinophils (%) (Auto) , Basophils (%) (Auto) , Differential Total Cells Counted 100, Neutrophils % ( Manual) 87H, Lymphocytes % (Manual) 6L, Monocytes % (Manual) 5, Eosinophils % ( Manual) 0, Basophils % (Manual) 0, Band Neutrophils 2, Platelet Estimate Adequate, Platelet Morphology Normal, Red Blood Cell Morphology Normal, Urine Color Pale yellow, Urine Appearance Cloudy, Urine pH 7, Urine Specific [place] 1.010, Urine Protein 2+H, Urine Glucose (UA) Negative, Urine Ketones Negative, Urine Occult Blood 4+H, Urine Nitrite Negative, Urine Bilirubin Negative, Urine Urobilinogen Normal, Urine Leukocyte Esterase 3+H, Urine RBC 5-10H, Urine WBC 60 -80H, Urine Squamous Epithelial Cells Few, Urine Bacteria ManyH, Sodium Level 139, Potassium Level 3.7, Chloride Level 102, Carbon Dioxide Level 27, Anion Gap 10, Blood Urea Nitrogen 19H, Creatinine 0.7, Estimat Glomerular Filtration Rate > 60, Glucose Level 106, Calcium Level 9.6 Current Medications Medications (Trade) Dose Ordered Sig/Mylene Route PRN Reason Start Time Stop Time Status Last Admin Dose Admin Dextrose/Sodium Chloride 1,000 ml @ 100 mls/hr Q10H IV 12/20/17 14:00 01/19/18 13:59 12/24/17 17:34 Docusate Sodium (Colace) 100 mg TWICE A DAY ORAL 12/20/17 18:00 01/19/18 17:59 12/25/17 08:28 Fluoxetine HCl (PROzac) 20 mg DAILY ORAL 12/24/17 09:00 01/23/18 08:59 12/25/17 08:28 Levofloxacin 100 ml @ 100 mls/hr Q24H IVPB 12/25/17 16:00 01/01/18 15:59 12/25/17 16:00 Lorazepam (Ativan) 1 mg TIDPRN PRN ORAL For Anxiety 12/21/17 08:30 12/28/17 08:14 12/23/17 18:03 Morphine Sulfate (Morphine Sulfate) 2 mg Q4H PRN IV Mild Pain (Pain Scale 1-3) 12/20/17 14:00 12/27/17 13:59 12/24/17 15:59 Morphine Sulfate (Morphine Sulfate) 4 mg Q3H PRN IV Severe Pain (Pain Scale 7-10) 12/20/17 14:00 12/27/17 13:59 12/23/17 12:29 Morphine Sulfate (Morphine Sulfate) 4 mg Q4H PRN IV Moderate Pain (Pain Scale 4-6) 12/20/17 14:00 12/27/17 13:59 12/21/17 20:05 Naloxone HCl (Narcan) 0.1 mg PRN PRN IVP RR<12/min, pt unarousable 12/20/17 14:00 01/19/18 13:59 Oxycodone/ Acetaminophen (Percocet 5-325) 1 tab Q3H PRN ORAL Severe Pain (Pain Scale 7-10) 12/22/17 21:00 12/29/17 20:59 12/25/17 15:57 Trazodone HCl (Desyrel) 50 mg BEDTIME ORAL 12/20/17 21:00 01/19/18 20:59 12/24/17 20:33 Alexia Cooley MD Dec 25, 2017 18:21
[2017-12-25 20:00] VITALS: BP 116/69
[2017-12-25] MEDS: TraZODone 50mg tab ORAL SCH (20:37)
[2017-12-26] VITALS: BP 137/70
[2017-12-26] MEDS: D5 1/2NS 1,000 ML IV SCH ×3 (00:18→20:00)
[2017-12-26] MEDS: oxyCODONE HCL/Acetaminophen 5/325mg ORAL PRN ×4 (01:53→19:12)
[2017-12-26 04:00] VITALS: BP 102/59
[2017-12-26 08:00] VITALS: BP 106/63
[2017-12-26] MEDS: Docusate 100mg cap ORAL SCH ×2 (08:48→18:00)
[2017-12-26 12:00] VITALS: BP 112/73
--- NOTE | 2017-12-26 12:23 | Pulmonology Progress Note ---
Assessment/Plan Problems: (1) Lumbar radiculopathy (2) L5S1 laminectomy Assessment/Plan no new complains pain management symptomatic treatment pt claims she needs help when going home might need placement, but she doesn't want to go to any rehab Subjective ROS Limited/Unobtainable: No Constitutional: Reports: no symptoms HEENT: Repors: no symptoms Respiratory: Reports: no symptoms Allergies: Coded Allergies: No Known Allergies (Unverified , 12/20/17) Objective Last 24 Hour Vital Signs Date Time Temp Pulse Resp B/P (MAP) Pulse Ox O2 Delivery O2 Flow Rate FiO2 12/26/17 12:15 97.8 12/26/17 12:00 97.8 90 20 112/73 (86) 98 97.8 12/26/17 09:00 Room Air Room Air 12/26/17 08:00 97.7 92 20 106/63 (77) 100 97.7 12/26/17 04:00 97.9 76 18 102/59 (73) 98 97.9 12/26/17 02:52 97.5 12/26/17 01:53 97.5 12/26/17 00:00 97.5 79 18 137/70 (92) 95 97.5 12/25/17 21:00 Room Air Room Air 12/25/17 20:00 97.9 97 19 116/69 (85) 94 97.9 12/25/17 16:00 97.8 82 20 122/75 (91) 96 97.8 12/25/17 15:57 98.3 Intake and Output 12/25/17 12/26/17 19:00 07:00 Intake Total 350 ml 240 ml Balance 350 ml 240 ml Intake Oral 350 ml 240 ml # Voids 3 4 # Bowel Movements 1 1 Objective General Appearance: no acute distress, cachetic HEENT: normocephalic, atraumatic Respiratory/Chest: chest wall non-tender, lungs clear Breasts: no masses Cardiovascular: normal peripheral pulses Abdomen: normal bowel sounds, soft, non tender Genitourinary: normal external genitalia Extremities: no clubbing 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 Microbiology Date/Time Source Procedure Growth Status 12/25/17 12:31 Straight Cath Urine Culture - Preliminary Gram Negative Bacillus 1 Resulted Laboratory Tests 12/25/17 12:31: White Blood Count 17.5H, Red Blood Count 4.39, Hemoglobin 13.6, Hematocrit 40.5 , Mean Corpuscular Volume 92, Mean Corpuscular Hemoglobin 31.0, Mean Corpuscular Hemoglobin Concent 33.6, Red Cell Distribution Width 11.3L, Platelet Count 406, Mean Platelet Volume 6.8, Neutrophils (%) (Auto) , Lymphocytes (%) (Auto) , Monocytes (%) (Auto) , Eosinophils (%) (Auto) , Basophils (%) (Auto) , Differential Total Cells Counted 100, Neutrophils % ( Manual) 87H, Lymphocytes % (Manual) 6L, Monocytes % (Manual) 5, Eosinophils % ( Manual) 0, Basophils % (Manual) 0, Band Neutrophils 2, Platelet Estimate Adequate, Platelet Morphology Normal, Red Blood Cell Morphology Normal, Urine Color Pale yellow, Urine Appearance Cloudy, Urine pH 7, Urine Specific [place] 1.010, Urine Protein 2+H, Urine Glucose (UA) Negative, Urine Ketones Negative, Urine Occult Blood 4+H, Urine Nitrite Negative, Urine Bilirubin Negative, Urine Urobilinogen Normal, Urine Leukocyte Esterase 3+H, Urine RBC 5-10H, Urine WBC 60 -80H, Urine Squamous Epithelial Cells Few, Urine Bacteria ManyH, Sodium Level 139, Potassium Level 3.7, Chloride Level 102, Carbon Dioxide Level 27, Anion Gap 10, Blood Urea Nitrogen 19H, Creatinine 0.7, Estimat Glomerular Filtration Rate > 60, Glucose Level 106, Calcium Level 9.6 Current Medications Medications (Trade) Dose Ordered Sig/Mylene Route PRN Reason Start Time Stop Time Status Last Admin Dose Admin Dextrose/Sodium Chloride 1,000 ml @ 100 mls/hr Q10H IV 12/20/17 14:00 01/19/18 13:59 12/26/17 10:00 Docusate Sodium (Colace) 100 mg TWICE A DAY ORAL 12/20/17 18:00 01/19/18 17:59 12/25/17 08:28 Fluoxetine HCl (PROzac) 20 mg DAILY ORAL 12/24/17 09:00 01/23/18 08:59 12/26/17 08:48 Levofloxacin 100 ml @ 100 mls/hr Q24H IVPB 12/25/17 16:00 01/01/18 15:59 12/25/17 16:00 Lorazepam (Ativan) 1 mg TIDPRN PRN ORAL For Anxiety 12/21/17 08:30 12/28/17 08:14 12/23/17 18:03 Morphine Sulfate (Morphine Sulfate) 2 mg Q4H PRN IV Mild Pain (Pain Scale 1-3) 12/20/17 14:00 12/27/17 13:59 12/24/17 15:59 Morphine Sulfate (Morphine Sulfate) 4 mg Q3H PRN IV Severe Pain (Pain Scale 7-10) 12/20/17 14:00 12/27/17 13:59 12/23/17 12:29 Morphine Sulfate (Morphine Sulfate) 4 mg Q4H PRN IV Moderate Pain (Pain Scale 4-6) 12/20/17 14:00 12/27/17 13:59 12/21/17 20:05 Naloxone HCl (Narcan) 0.1 mg PRN PRN IVP RR<12/min, pt unarousable 12/20/17 14:00 01/19/18 13:59 Oxycodone/ Acetaminophen (Percocet 5-325) 1 tab Q3H PRN ORAL Severe Pain (Pain Scale 7-10) 12/22/17 21:00 12/29/17 20:59 12/26/17 12:15 Trazodone HCl (Desyrel) 50 mg BEDTIME ORAL 12/20/17 21:00 01/19/18 20:59 12/25/17 20:37 Alexia Cooley MD Dec 26, 2017 12:23
[2017-12-26 16:00] VITALS: BP 114/71
[2017-12-26 20:00] VITALS: BP 141/86
[2017-12-26] MEDS: TraZODone 50mg tab ORAL SCH (20:25)
[2017-12-27] VITALS: BP 114/72
[2017-12-27] MEDS: D5 1/2NS 1,000 ML IV SCH ×2 (00:17→15:26)
[2017-12-27] MEDS: oxyCODONE HCL/Acetaminophen 5/325mg ORAL PRN ×4 (00:17→13:56)
[2017-12-27 04:00] VITALS: BP 111/65
--- NOTE | 2017-12-27 07:52 | General Progress Note ---
Progress Note Progress Note Back pain improving no leg pain UTI per Dr. Palacios--milky urine on iv levaquin ambulation well a and o times 3 inc cdi no erythema 5/5 in the le calves soft adn nt lt intact A: doing well P: treatment for Uti poss home with po abx per dr palacios follow up in the offie in 7 to 10 days Nickolas Brennan MD Dec 27, 2017 07:52
[2017-12-27 08:00] VITALS: BP 134/97
[2017-12-27] MEDS: Docusate 100mg cap ORAL SCH (09:00)
[2017-12-27 12:00] VITALS: BP 105/53
[2017-12-27] MEDS ORDERED: LEVOFLOXACIN500 MG ORAL (12:35)
--- NOTE | 2017-12-27 12:43 | Pulmonology Progress Note ---
Assessment/Plan Problems: (1) Lumbar radiculopathy (2) L5S1 laminectomy Assessment/Plan dc home with no new complains pain management symptomatic treatment continue abx for two more days, Urine is pansensitive Subjective Constitutional: Reports: no symptoms Respiratory: Reports: no symptoms Allergies: Coded Allergies: No Known Allergies (Unverified , 12/20/17) Objective Last 24 Hour Vital Signs Date Time Temp Pulse Resp B/P (MAP) Pulse Ox O2 Delivery O2 Flow Rate FiO2 12/27/17 12:00 97.9 68 22 105/53 (70) 97 97.9 12/27/17 10:57 97.7 12/27/17 09:58 97.7 12/27/17 09:00 Room Air Room Air 12/27/17 08:00 97.7 76 22 134/97 (109) 97 97.7 12/27/17 04:00 97.8 64 19 111/65 (80) 95 97.8 12/27/17 00:17 98.5 12/27/17 00:00 97.6 78 18 114/72 (86) 97 97.6 12/26/17 21:00 Room Air Room Air 12/26/17 20:00 98.5 89 19 141/86 (104) 97 98.5 12/26/17 19:12 97.4 12/26/17 16:00 97.4 87 19 114/71 (85) 98 97.4 Intake and Output 12/26/17 12/27/17 19:00 07:00 Intake Total 2220 ml 240 ml Balance 2220 ml 240 ml Intake Oral 1120 ml 240 ml IV Total 1100 ml # Voids 2 4 # Bowel Movements 1 2 Objective General Appearance: no acute distress, cachetic HEENT: normocephalic, atraumatic Respiratory/Chest: chest wall non-tender, lungs clear Breasts: no masses Cardiovascular: normal peripheral pulses Abdomen: normal bowel sounds, soft, non tender Genitourinary: normal external genitalia Extremities: no clubbing 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 Microbiology Date/Time Source Procedure Growth Status 12/25/17 12:31 Straight Cath Urine Culture - Final Escherichia Coli Complete Current Medications Medications (Trade) Dose Ordered Sig/Mylene Route PRN Reason Start Time Stop Time Status Last Admin Dose Admin Dextrose/Sodium Chloride 1,000 ml @ 100 mls/hr Q10H IV 12/20/17 14:00 01/19/18 13:59 12/27/17 00:17 Docusate Sodium (Colace) 100 mg TWICE A DAY ORAL 12/20/17 18:00 01/19/18 17:59 12/25/17 08:28 Fluoxetine HCl (PROzac) 20 mg DAILY ORAL 12/24/17 09:00 01/23/18 08:59 12/27/17 09:57 Levofloxacin 100 ml @ 100 mls/hr Q24H IVPB 12/25/17 16:00 01/01/18 15:59 12/26/17 16:50 Lorazepam (Ativan) 1 mg TIDPRN PRN ORAL For Anxiety 12/21/17 08:30 12/28/17 08:14 12/23/17 18:03 Morphine Sulfate (Morphine Sulfate) 2 mg Q4H PRN IV Mild Pain (Pain Scale 1-3) 12/20/17 14:00 12/27/17 13:59 12/24/17 15:59 Morphine Sulfate (Morphine Sulfate) 4 mg Q3H PRN IV Severe Pain (Pain Scale 7-10) 12/20/17 14:00 12/27/17 13:59 12/23/17 12:29 Morphine Sulfate (Morphine Sulfate) 4 mg Q4H PRN IV Moderate Pain (Pain Scale 4-6) 12/20/17 14:00 12/27/17 13:59 12/21/17 20:05 Naloxone HCl (Narcan) 0.1 mg PRN PRN IVP RR<12/min, pt unarousable 12/20/17 14:00 01/19/18 13:59 Oxycodone/ Acetaminophen (Percocet 5-325) 1 tab Q3H PRN ORAL Severe Pain (Pain Scale 7-10) 12/22/17 21:00 12/29/17 20:59 12/27/17 09:58 Trazodone HCl (Desyrel) 50 mg BEDTIME ORAL 12/20/17 21:00 01/19/18 20:59 12/26/17 20:25 Alexia Cooley MD Dec 27, 2017 12:43
--- NOTE | 2017-12-27 15:58 | General Progress Note ---
Assessment/Plan Status: stable Assessment/Plan MDD Anxiety prokimotonia maru script in chart Subjective Date patient seen: Dec 27, 2017 Neurologic/Psychiatric: Reports: anxiety, depressed, emotional problems Allergies: Coded Allergies: No Known Allergies (Unverified , 12/20/17) Objective Last 24 Hour Vital Signs Date Time Temp Pulse Resp B/P (MAP) Pulse Ox O2 Delivery O2 Flow Rate FiO2 12/27/17 14:55 97.9 12/27/17 13:56 97.9 12/27/17 12:00 97.9 68 22 105/53 (70) 97 97.9 12/27/17 09:58 97.7 12/27/17 09:00 Room Air Room Air 12/27/17 08:00 97.7 76 22 134/97 (109) 97 97.7 12/27/17 04:00 97.8 64 19 111/65 (80) 95 97.8 12/27/17 00:17 98.5 12/27/17 00:00 97.6 78 18 114/72 (86) 97 97.6 12/26/17 21:00 Room Air Room Air 12/26/17 20:00 98.5 89 19 141/86 (104) 97 98.5 12/26/17 19:12 97.4 12/26/17 16:00 97.4 87 19 114/71 (85) 98 97.4 Intake and Output 12/26/17 12/27/17 19:00 07:00 Intake Total 2220 ml 240 ml Balance 2220 ml 240 ml Intake Oral 1120 ml 240 ml IV Total 1100 ml # Voids 2 4 # Bowel Movements 1 2 Height (Feet): 5 Height (Inches): 7.00 Weight (Pounds): 112 General Appearance: no apparent distress, alert Neurologic: oriented x 3, responsive Loco Muñiz MD Dec 27, 2017 15:58
[2017-12-27 16:00] VITALS: BP 114/66
[2017-12-27] MEDS ORDERED: Levofloxacin 500mg tab ORAL SCH (16:00)
--- NOTE | 2017-12-28 11:51 | Discharge Summary ---
Discharge Summary Hospital Course Date of Admission Dec 20, 2017 at 05:18 Date of Discharge Dec 27, 2017 at 17:30 Admitting Diagnosis lumbar radiculopathy Reason for Hospitalization: elective surgery RAFIA Vences is a 67 year old female who was admitted on Dec 20, 2017 at 05: 18 for Lumbar Radiculopathy. Patient was admitted for elective surgery Consultations dr Cooley-IM dr Muñiz-psych Procedures s/p 12/20/[address] Brennan 1. L5-S1 laminectomy, foraminotomy, and right-sided diskectomy. 2. Right L4-L5 laminotomy, medial facetectomy, foraminotomy, and lateral recess decompression. 3. Intraoperative use of microscope. Hospital Course s/p surgery pain management : pain addressed and controlled neurovascularly status closely monitored, motor strength right lower extremity with small improvement compared to preop, LLE 5/5 initially IV fluids until [id number] diet, then dc incision clean, dry, and intact initial dressing changed by surgeon Hemovac was dc aggressive mobilization out of bed with physical therapy fall precautions maintained incentive spirometry while in the bed and encourage to use q 1-2 hrs SCD for mechanical prophylaxis of DVT noted milky urine and started on empiric antibiotics urine cx E coli tolerated diet , antiemetics prn bowel regimen instituted psychiatrist seen and evaluated and optimized psychiatric medication regimen ( scripts provided) patient was stable for discharge discharge instruction provided prescription for Levaquin provided patient follow-up with the surgeon in 7-10 days FINAL DIAGNOSES Lumbar radiculopathy HNP s/p L5- S1 laminectomy and foraminotomies and microdiscectomy Urinary tract infection with E coli Major depressive disorder Anxiety Discharge Medications New Medications: Levofloxacin (Levofloxacin*) 500 Mg Tablet 500 MG ORAL DAILY for 2 Days, TAB Discharge Condition Upon Discharge: stable Discharge Disposition Patient was discharged to Home with Home Health(06) Discharge Instructions Discharge Instructions Special Instructions I have been assigned to complete a D/C Summary on this account. I was not involved in the patient management Laurel Harris NP Dec 28, 2017 11:51
== END 2017-12-27 17:30 | disposition home health service (06) | DRG 519 ==
LOC: SDSOVERFLO 05:18 → 3E 13:45
PROC: 0ST40ZZ Resection of Lumbosacral Disc, Open Approach (ICD-10-PCS; principal; 2017-12-20 07:30)
PROC: 01NB0ZZ Release Lumbar Nerve, Open Approach (ICD-10-PCS; principal; 2017-12-20 07:30)
DX: M51.16 Intervertebral disc disorders with radiculopathy, lumbar region (principal); N39.0 Urinary tract infection, site not specified; M48.061 Spinal stenosis, lumbar region without neurogenic claudication; F32.9 Major depressive disorder, single episode, unspecified; F41.9 Anxiety disorder, unspecified; B96.20 Unspecified Escherichia coli [E. coli] as the cause of diseases classified elsewhere
CPT/HCPCS: 36415; 72020; 80048; 81001; 85007; 85025; 86850; 86900; 86901; 87081; 87086; 87181; 94003; 94150; J2250; J2710